=== PATIENT | male | born 1980 | race Caucasian/White ===

== ENCOUNTER 2020-06-02 16:05 | Inpatient (IN) | payer OTHER ==
[2020-06-02 18:22] VITALS: BMI 29.0
[2020-06-02] MEDS ORDERED: LOPERAMIDE HCL 2 MG CAPSULE PO PRN (19:22)
[2020-06-02] MEDS ORDERED: MAGNESIUM CITRATE 300 ML BOTTLE PO PRN (19:22)
[2020-06-02] MEDS ORDERED: MAGNESIUM HYDROX 2400MG/30ML ORAL SUSPENSION 30 ML CUP PO PRN (19:22)
[2020-06-02] MEDS ORDERED: P-EPHED 60MG/TRIPROLIDI 2.5MG TABLET PO PRN (19:22)
[2020-06-02] MEDS ORDERED: ACETAMINOPHEN 325 MG TABLET (FP) PO PRN (19:22)
[2020-06-02] MEDS ORDERED: IBUPROFEN 400 MG TABLET (FP) PO PRN (19:22)
[2020-06-02] MEDS ORDERED: MENTHOL/PHENOL 1 EACH UD MM PRN (19:22)
[2020-06-02] MEDS ORDERED: guaiFENesin 200 MG/10 ML 10 ML UNIT-DOSE CUPS PO PRN (19:22)
[2020-06-02] MEDS: hydrOXYzine PAMOATE 25 MG CAPSULE (FP) PO PRN (22:09)
[2020-06-02] MEDS: MELATONIN 5 MG TABLETS PO SCH (22:09)
[2020-06-02] MEDS: THIAMINE HCL 100 MG TABLET (FP) PO SCH (22:09)
[2020-06-02] MEDS ORDERED: TUBERCULIN PPD 5 TU/0.1ML VIAL ID ONE (22:12)
[2020-06-02] MEDS: MAG HYDROX/AL HYDROX/SIMETH 30 ML UNIT-DOSE CUP PO PRN (22:12)
[2020-06-03] MEDS: NICOTINE POLACRILEX 2 MG GUM BUC PRN ×2 (06:18→15:37)
[2020-06-03] MEDS: NICOTINE 21 MG/24 HOURS TOPICAL PATCH TD SCH (09:32)
[2020-06-03] MEDS: PRENATAL VITAMINS W/ FOLIC ACID TABLET (FP) PO SCH (09:32)
[2020-06-03] MEDS: hydrOXYzine PAMOATE 25 MG CAPSULE (FP) PO PRN (09:32)
[2020-06-03 10:29] LABS: HEMOGLOBIN 14.2 GM/dL (11.7-16.9); MCH 31.8 pg (25.7-33.7); MEAN CELL VOLUME 96.6 fl (80-96); MEAN PLT VOLUME 7.7 fl (7.5-11.1); PLATELET COUNT 250 K/MM3 (134-434); RBC 4.46 M/mm3 (4.00-5.60); RDW 13.6 % (11.9-15.9); WHITE BLOOD COUNT 6.1 K/mm3 (4.0-10.0)
[2020-06-03] MEDS: FLUoxetine HCL 20 MG CAPSULE PO SCH (10:30)
[2020-06-03] MEDS: PANTOPRAZOLE 40 MG TABLET PO SCH (10:30)
[2020-06-03 10:31] LABS: POTASSIUM 4.3 mmol/L (3.5-5.1)
[2020-06-03 10:35] LABS: ALBUMIN 3.8 g/dl (3.4-5.0); BLOOD UREA NITROGEN 11.7 mg/dL (7-18); CALCIUM 9.2 mg/dL (8.5-10.1)
[2020-06-03 10:38] LABS: CREATININE 0.8 mg/dL (0.55-1.3)
[2020-06-03 10:39] LABS: BILIRUBIN,TOTAL 0.8 mg/dL (0.2-1); TOT PROT 7.5 g/dl (6.4-8.2)
[2020-06-03] MEDS: GABAPENTIN 100 MG CAPSULE PO SCH ×2 (15:00→21:33)
[2020-06-03] MEDS: MELATONIN 5 MG TABLETS PO SCH (21:33)
[2020-06-03] MEDS: THIAMINE HCL 100 MG TABLET (FP) PO SCH (21:33)
[2020-06-04] MEDS: hydrOXYzine PAMOATE 25 MG CAPSULE (FP) PO PRN ×4 (06:28→21:11)
[2020-06-04] MEDS: GABAPENTIN 100 MG CAPSULE PO SCH ×3 (06:28→21:10)
[2020-06-04] MEDS: NICOTINE 21 MG/24 HOURS TOPICAL PATCH TD SCH (09:27)
[2020-06-04] MEDS: PRENATAL VITAMINS W/ FOLIC ACID TABLET (FP) PO SCH (09:28)
[2020-06-04] MEDS: FLUoxetine HCL 20 MG CAPSULE PO SCH (09:28)
[2020-06-04] MEDS: PANTOPRAZOLE 40 MG TABLET PO SCH (09:28)
[2020-06-04] MEDS: NICOTINE POLACRILEX 2 MG GUM BUC PRN ×2 (11:46→17:00)
[2020-06-04] MEDS: MAG HYDROX/AL HYDROX/SIMETH 30 ML UNIT-DOSE CUP PO PRN (11:46)
[2020-06-04] MEDS: THIAMINE HCL 100 MG TABLET (FP) PO SCH (21:10)
[2020-06-04] MEDS: MELATONIN 5 MG TABLETS PO SCH (21:11)
[2020-06-05] MEDS: hydrOXYzine PAMOATE 25 MG CAPSULE (FP) PO PRN ×4 (06:13→21:19)
[2020-06-05] MEDS: GABAPENTIN 100 MG CAPSULE PO SCH ×3 (06:13→21:19)
[2020-06-05] MEDS: NICOTINE POLACRILEX 2 MG GUM BUC PRN ×2 (06:14→09:40)
[2020-06-05] MEDS: PRENATAL VITAMINS W/ FOLIC ACID TABLET (FP) PO SCH (09:37)
[2020-06-05] MEDS: FLUoxetine HCL 20 MG CAPSULE PO SCH (09:37)
[2020-06-05] MEDS: NICOTINE 21 MG/24 HOURS TOPICAL PATCH TD SCH (09:37)
[2020-06-05] MEDS: PANTOPRAZOLE 40 MG TABLET PO SCH (09:37)
[2020-06-05] MEDS: METHOCARBAMOL 500 MG TABLET PO PRN ×3 (10:42→21:19)
[2020-06-05] MEDS ORDERED: INSULIN SLIDING SCALE (NOVOLOG) 1 VIAL SQ SCH (11:00)
[2020-06-05] MEDS: INSULIN SLIDING SCALE (NOVOLOG) 1 VIAL SQ SCH (17:01)
[2020-06-05] MEDS ORDERED: INSULIN (NOVOLOG) ASPART 100 UNITS/ML 10ML VIAL ONE (17:07)
[2020-06-05] MEDS: THIAMINE HCL 100 MG TABLET (FP) PO SCH (21:18)
[2020-06-05] MEDS: MELATONIN 5 MG TABLETS PO SCH (21:18)
[2020-06-06] MEDS ORDERED: INSULIN (NOVOLOG) ASPART 100 UNITS/ML 10ML VIAL ONE (06:25)
[2020-06-06] MEDS: GABAPENTIN 100 MG CAPSULE PO SCH ×3 (06:27→21:41)
[2020-06-06] MEDS: METHOCARBAMOL 500 MG TABLET PO PRN ×2 (06:27→11:53)
[2020-06-06] MEDS: hydrOXYzine PAMOATE 25 MG CAPSULE (FP) PO PRN ×4 (06:27→21:41)
[2020-06-06] MEDS: NICOTINE POLACRILEX 2 MG GUM BUC PRN ×5 (06:27→21:42)
[2020-06-06] MEDS: INSULIN SLIDING SCALE (NOVOLOG) 1 VIAL SQ SCH ×2 (06:27→17:01)
[2020-06-06] MEDS ORDERED: IBUPROFEN 600 MG TABLET (FP) PO PRN ×2 (09:46→10:01)
[2020-06-06] MEDS: NICOTINE 21 MG/24 HOURS TOPICAL PATCH TD SCH (09:54)
[2020-06-06] MEDS: PRENATAL VITAMINS W/ FOLIC ACID TABLET (FP) PO SCH (09:54)
[2020-06-06] MEDS: FLUoxetine HCL 20 MG CAPSULE PO SCH (09:56)
[2020-06-06] MEDS: PANTOPRAZOLE 40 MG TABLET PO SCH (09:56)
[2020-06-06] MEDS: METHOCARBAMOL 750 MG TAB PO PRN (17:54)
[2020-06-06] MEDS: MELATONIN 5 MG TABLETS PO SCH (21:41)
[2020-06-06] MEDS: THIAMINE HCL 100 MG TABLET (FP) PO SCH (21:41)
[2020-06-07] MEDS ORDERED: INSULIN (NOVOLOG) ASPART 100 UNITS/ML 10ML VIAL ONE (05:52)
[2020-06-07] MEDS: METHOCARBAMOL 750 MG TAB PO PRN ×3 (06:08→21:33)
[2020-06-07] MEDS: GABAPENTIN 100 MG CAPSULE PO SCH ×2 (06:08→13:51)
[2020-06-07] MEDS: hydrOXYzine PAMOATE 25 MG CAPSULE (FP) PO PRN ×4 (06:08→21:33)
[2020-06-07] MEDS: INSULIN SLIDING SCALE (NOVOLOG) 1 VIAL SQ SCH ×2 (06:12→16:55)
[2020-06-07] MEDS: PRENATAL VITAMINS W/ FOLIC ACID TABLET (FP) PO SCH (09:51)
[2020-06-07] MEDS: NICOTINE 21 MG/24 HOURS TOPICAL PATCH TD SCH (09:51)
[2020-06-07] MEDS: PANTOPRAZOLE 40 MG TABLET PO SCH (09:52)
[2020-06-07] MEDS: FLUoxetine HCL 20 MG CAPSULE PO SCH (09:52)
[2020-06-07] MEDS: NICOTINE POLACRILEX 2 MG GUM BUC PRN ×3 (09:53→21:33)
[2020-06-07] MEDS ORDERED: FLU VACCINE (FLULAVAL) PF 60 MCG/0.5 ML SYRINGE 2020-2021 IM ONE (12:00)
[2020-06-07] MEDS: MELATONIN 5 MG TABLETS PO SCH (21:32)
[2020-06-07] MEDS: THIAMINE HCL 100 MG TABLET (FP) PO SCH (21:33)
[2020-06-07] MEDS: GABAPENTIN 400 MG CAPSULE PO SCH (21:33)
[2020-06-08] MEDS: GABAPENTIN 400 MG CAPSULE PO SCH ×3 (06:37→21:56)
[2020-06-08] MEDS: METHOCARBAMOL 750 MG TAB PO PRN ×3 (06:37→21:56)
[2020-06-08] MEDS: hydrOXYzine PAMOATE 25 MG CAPSULE (FP) PO PRN ×3 (06:37→21:56)
[2020-06-08] MEDS: INSULIN SLIDING SCALE (NOVOLOG) 1 VIAL SQ SCH ×2 (06:40→16:58)
[2020-06-08] MEDS: NICOTINE 21 MG/24 HOURS TOPICAL PATCH TD SCH (10:10)
[2020-06-08] MEDS: PANTOPRAZOLE 40 MG TABLET PO SCH (10:11)
[2020-06-08] MEDS: PRENATAL VITAMINS W/ FOLIC ACID TABLET (FP) PO SCH (10:11)
[2020-06-08] MEDS: FLUoxetine HCL 10 MG CAPSULE PO SCH (10:12)
[2020-06-08] MEDS: NICOTINE POLACRILEX 2 MG GUM BUC PRN ×2 (10:12→13:28)
[2020-06-08] MEDS ORDERED: INSULIN (NOVOLOG) ASPART 100 UNITS/ML 10ML VIAL ONE (16:31)
[2020-06-08] MEDS: THIAMINE HCL 100 MG TABLET (FP) PO SCH (21:56)
[2020-06-08] MEDS: MELATONIN 5 MG TABLETS PO SCH (21:56)
[2020-06-09] MEDS: METHOCARBAMOL 750 MG TAB PO PRN ×3 (06:30→21:17)
[2020-06-09] MEDS: GABAPENTIN 400 MG CAPSULE PO SCH ×3 (06:30→21:17)
[2020-06-09] MEDS: NICOTINE POLACRILEX 4 MG GUM BUC PRN ×3 (06:30→14:34)
[2020-06-09] MEDS: hydrOXYzine PAMOATE 25 MG CAPSULE (FP) PO PRN ×2 (06:30→14:34)
[2020-06-09] MEDS: INSULIN SLIDING SCALE (NOVOLOG) 1 VIAL SQ SCH ×2 (07:18→16:47)
[2020-06-09] MEDS: FLUoxetine HCL 10 MG CAPSULE PO SCH (09:48)
[2020-06-09] MEDS: NICOTINE 21 MG/24 HOURS TOPICAL PATCH TD SCH (09:49)
[2020-06-09] MEDS: PANTOPRAZOLE 40 MG TABLET PO SCH (09:49)
[2020-06-09] MEDS: PRENATAL VITAMINS W/ FOLIC ACID TABLET (FP) PO SCH (09:49)
[2020-06-09] MEDS: THIAMINE HCL 100 MG TABLET (FP) PO SCH (21:17)
[2020-06-09] MEDS: MELATONIN 5 MG TABLETS PO SCH (21:19)
[2020-06-10] MEDS: GABAPENTIN 400 MG CAPSULE PO SCH (06:36)
[2020-06-10] MEDS: INSULIN SLIDING SCALE (NOVOLOG) 1 VIAL SQ SCH ×2 (06:36→16:58)
[2020-06-10] MEDS: METHOCARBAMOL 750 MG TAB PO PRN ×3 (06:37→21:45)
[2020-06-10] MEDS: NICOTINE POLACRILEX 4 MG GUM BUC PRN ×4 (06:37→21:47)
[2020-06-10] MEDS: NICOTINE 21 MG/24 HOURS TOPICAL PATCH TD SCH (09:32)
[2020-06-10] MEDS: PRENATAL VITAMINS W/ FOLIC ACID TABLET (FP) PO SCH (09:32)
[2020-06-10] MEDS: PANTOPRAZOLE 40 MG TABLET PO SCH (09:32)
[2020-06-10] MEDS: FLUoxetine HCL 10 MG CAPSULE PO SCH (09:32)
[2020-06-10] MEDS: hydrOXYzine PAMOATE 25 MG CAPSULE (FP) PO PRN ×2 (14:13→21:44)
[2020-06-10] MEDS: GABAPENTIN 300 MG CAPSULE PO SCH ×2 (14:15→21:44)
[2020-06-10] MEDS ORDERED: INSULIN (NOVOLOG) ASPART 100 UNITS/ML 10ML VIAL ONE (17:11)
[2020-06-10] MEDS: THIAMINE HCL 100 MG TABLET (FP) PO SCH (21:44)
[2020-06-10] MEDS: MELATONIN 5 MG TABLETS PO SCH (21:44)
[2020-06-11] MEDS: GABAPENTIN 300 MG CAPSULE PO SCH ×3 (06:23→21:16)
[2020-06-11] MEDS ORDERED: INSULIN (NOVOLOG) ASPART 100 UNITS/ML 10ML VIAL ONE (06:23)
[2020-06-11] MEDS: hydrOXYzine PAMOATE 25 MG CAPSULE (FP) PO PRN ×4 (06:23→21:16)
[2020-06-11] MEDS: NICOTINE POLACRILEX 4 MG GUM BUC PRN ×5 (06:25→21:18)
[2020-06-11] MEDS: METHOCARBAMOL 750 MG TAB PO PRN ×2 (06:25→21:16)
[2020-06-11] MEDS: INSULIN SLIDING SCALE (NOVOLOG) 1 VIAL SQ SCH ×2 (06:25→16:53)
[2020-06-11] MEDS: NICOTINE 21 MG/24 HOURS TOPICAL PATCH TD SCH (10:06)
[2020-06-11] MEDS: PRENATAL VITAMINS W/ FOLIC ACID TABLET (FP) PO SCH (10:06)
[2020-06-11] MEDS: FLUoxetine HCL 20 MG CAPSULE PO SCH (10:07)
[2020-06-11] MEDS: PANTOPRAZOLE 40 MG TABLET PO SCH (10:09)
[2020-06-11] MEDS: MELATONIN 5 MG TABLETS PO SCH (21:16)
[2020-06-11] MEDS: THIAMINE HCL 100 MG TABLET (FP) PO SCH (21:16)
[2020-06-12] MEDS: METHOCARBAMOL 750 MG TAB PO PRN ×3 (06:28→21:26)
[2020-06-12] MEDS: hydrOXYzine PAMOATE 25 MG CAPSULE (FP) PO PRN ×5 (06:28→21:26)
[2020-06-12] MEDS: GABAPENTIN 300 MG CAPSULE PO SCH ×3 (06:28→21:26)
[2020-06-12] MEDS: NICOTINE POLACRILEX 4 MG GUM BUC PRN ×4 (06:29→16:54)
[2020-06-12] MEDS: INSULIN SLIDING SCALE (NOVOLOG) 1 VIAL SQ SCH ×2 (07:28→16:52)
[2020-06-12] MEDS: FLUoxetine HCL 20 MG CAPSULE PO SCH (09:56)
[2020-06-12] MEDS: PRENATAL VITAMINS W/ FOLIC ACID TABLET (FP) PO SCH (09:56)
[2020-06-12] MEDS: PANTOPRAZOLE 40 MG TABLET PO SCH (09:57)
[2020-06-12] MEDS: NICOTINE 21 MG/24 HOURS TOPICAL PATCH TD SCH (09:57)
[2020-06-12] MEDS: MELATONIN 5 MG TABLETS PO SCH (21:26)
[2020-06-12] MEDS: THIAMINE HCL 100 MG TABLET (FP) PO SCH (21:26)
[2020-06-13] MEDS: GABAPENTIN 300 MG CAPSULE PO SCH ×3 (06:20→21:14)
[2020-06-13] MEDS: hydrOXYzine PAMOATE 25 MG CAPSULE (FP) PO PRN ×3 (06:20→21:14)
[2020-06-13] MEDS: METHOCARBAMOL 750 MG TAB PO PRN ×3 (06:20→21:14)
[2020-06-13] MEDS ORDERED: INSULIN (NOVOLOG) ASPART 100 UNITS/ML 10ML VIAL ONE ×2 (06:50→16:35)
[2020-06-13] MEDS: INSULIN SLIDING SCALE (NOVOLOG) 1 VIAL SQ SCH ×2 (06:51→16:46)
[2020-06-13] MEDS: NICOTINE 21 MG/24 HOURS TOPICAL PATCH TD SCH (09:44)
[2020-06-13] MEDS: PANTOPRAZOLE 40 MG TABLET PO SCH (09:44)
[2020-06-13] MEDS: PRENATAL VITAMINS W/ FOLIC ACID TABLET (FP) PO SCH (09:44)
[2020-06-13] MEDS: FLUoxetine HCL 20 MG CAPSULE PO SCH (09:44)
[2020-06-13] MEDS: NICOTINE POLACRILEX 4 MG GUM BUC PRN ×4 (09:45→21:15)
[2020-06-13] MEDS: THIAMINE HCL 100 MG TABLET (FP) PO SCH (21:14)
[2020-06-13] MEDS: MELATONIN 5 MG TABLETS PO SCH (21:14)
[2020-06-14] MEDS: GABAPENTIN 300 MG CAPSULE PO SCH ×3 (06:10→21:23)
[2020-06-14] MEDS: METHOCARBAMOL 750 MG TAB PO PRN ×3 (06:10→21:23)
[2020-06-14] MEDS: hydrOXYzine PAMOATE 25 MG CAPSULE (FP) PO PRN ×3 (06:10→21:23)
[2020-06-14] MEDS: NICOTINE POLACRILEX 4 MG GUM BUC PRN ×4 (06:11→21:25)
[2020-06-14] MEDS: INSULIN SLIDING SCALE (NOVOLOG) 1 VIAL SQ SCH ×2 (06:33→16:40)
[2020-06-14] MEDS: FLUoxetine HCL 20 MG CAPSULE PO SCH (09:46)
[2020-06-14] MEDS: NICOTINE 21 MG/24 HOURS TOPICAL PATCH TD SCH (09:46)
[2020-06-14] MEDS: PANTOPRAZOLE 40 MG TABLET PO SCH (09:46)
[2020-06-14] MEDS: PRENATAL VITAMINS W/ FOLIC ACID TABLET (FP) PO SCH (09:46)
[2020-06-14] MEDS: IBUPROFEN 600 MG TABLET (FP) PO PRN ×2 (13:22→21:23)
[2020-06-14] MEDS: THIAMINE HCL 100 MG TABLET (FP) PO SCH (21:23)
[2020-06-14] MEDS: MELATONIN 5 MG TABLETS PO SCH (21:24)
[2020-06-15 00:06] LABS: HEP B CORE AB, TOT Negative (Negative)
[2020-06-15] MEDS: GABAPENTIN 300 MG CAPSULE PO SCH ×3 (06:16→21:16)
[2020-06-15] MEDS: hydrOXYzine PAMOATE 25 MG CAPSULE (FP) PO PRN ×3 (06:17→21:17)
[2020-06-15] MEDS: METHOCARBAMOL 750 MG TAB PO PRN ×2 (06:17→13:11)
[2020-06-15] MEDS: INSULIN SLIDING SCALE (NOVOLOG) 1 VIAL SQ SCH ×2 (06:18→17:14)
[2020-06-15] MEDS: NICOTINE POLACRILEX 4 MG GUM BUC PRN ×3 (06:19→13:12)
[2020-06-15] MEDS ORDERED: INSULIN (NOVOLOG) ASPART 100 UNITS/ML 10ML VIAL ONE ×2 (06:34→17:09)
[2020-06-15] MEDS: PRENATAL VITAMINS W/ FOLIC ACID TABLET (FP) PO SCH (09:34)
[2020-06-15] MEDS: PANTOPRAZOLE 40 MG TABLET PO SCH (09:34)
[2020-06-15] MEDS: FLUoxetine HCL 20 MG CAPSULE PO SCH (09:34)
[2020-06-15] MEDS: NICOTINE 21 MG/24 HOURS TOPICAL PATCH TD SCH (09:35)
[2020-06-15] MEDS: IBUPROFEN 600 MG TABLET (FP) PO PRN (13:12)
[2020-06-15] MEDS: THIAMINE HCL 100 MG TABLET (FP) PO SCH (21:16)
[2020-06-15] MEDS: MELATONIN 5 MG TABLETS PO SCH (21:57)
[2020-06-16] MEDS: hydrOXYzine PAMOATE 25 MG CAPSULE (FP) PO PRN ×3 (06:24→21:26)
[2020-06-16] MEDS: METHOCARBAMOL 750 MG TAB PO PRN ×3 (06:24→21:26)
[2020-06-16] MEDS: GABAPENTIN 300 MG CAPSULE PO SCH ×3 (06:24→21:26)
[2020-06-16] MEDS: NICOTINE POLACRILEX 4 MG GUM BUC PRN ×4 (06:24→21:27)
[2020-06-16] MEDS ORDERED: INSULIN (NOVOLOG) ASPART 100 UNITS/ML 10ML VIAL ONE (06:56)
[2020-06-16] MEDS: INSULIN SLIDING SCALE (NOVOLOG) 1 VIAL SQ SCH ×2 (07:15→16:59)
[2020-06-16] MEDS: NICOTINE 21 MG/24 HOURS TOPICAL PATCH TD SCH (09:49)
[2020-06-16] MEDS: PRENATAL VITAMINS W/ FOLIC ACID TABLET (FP) PO SCH (09:49)
[2020-06-16] MEDS: FLUoxetine HCL 20 MG CAPSULE PO SCH (09:49)
[2020-06-16] MEDS: PANTOPRAZOLE 40 MG TABLET PO SCH (09:50)
[2020-06-16] MEDS: MELATONIN 5 MG TABLETS PO SCH (21:26)
[2020-06-16] MEDS: THIAMINE HCL 100 MG TABLET (FP) PO SCH (21:26)
[2020-06-17] MEDS: GABAPENTIN 300 MG CAPSULE PO SCH ×3 (06:14→21:18)
[2020-06-17] MEDS: METHOCARBAMOL 750 MG TAB PO PRN ×3 (06:14→21:18)
[2020-06-17] MEDS: hydrOXYzine PAMOATE 25 MG CAPSULE (FP) PO PRN ×3 (06:14→21:18)
[2020-06-17] MEDS: INSULIN SLIDING SCALE (NOVOLOG) 1 VIAL SQ SCH ×2 (06:36→17:05)
[2020-06-17] MEDS: PANTOPRAZOLE 40 MG TABLET PO SCH (09:34)
[2020-06-17] MEDS: NICOTINE 21 MG/24 HOURS TOPICAL PATCH TD SCH (09:34)
[2020-06-17] MEDS: PRENATAL VITAMINS W/ FOLIC ACID TABLET (FP) PO SCH (09:34)
[2020-06-17] MEDS: FLUoxetine HCL 20 MG CAPSULE PO SCH (09:34)
[2020-06-17] MEDS: NICOTINE POLACRILEX 4 MG GUM BUC PRN ×4 (09:37→21:19)
[2020-06-17] MEDS: MELATONIN 5 MG TABLETS PO SCH (21:18)
[2020-06-17] MEDS: THIAMINE HCL 100 MG TABLET (FP) PO SCH (21:18)
[2020-06-18] MEDS: GABAPENTIN 300 MG CAPSULE PO SCH ×3 (06:08→21:12)
[2020-06-18] MEDS: METHOCARBAMOL 750 MG TAB PO PRN ×3 (06:08→21:12)
[2020-06-18] MEDS: hydrOXYzine PAMOATE 25 MG CAPSULE (FP) PO PRN ×3 (06:08→21:12)
[2020-06-18] MEDS: NICOTINE POLACRILEX 4 MG GUM BUC PRN ×2 (06:09→09:36)
[2020-06-18] MEDS ORDERED: INSULIN (NOVOLOG) ASPART 100 UNITS/ML 10ML VIAL ONE (06:30)
[2020-06-18] MEDS: INSULIN SLIDING SCALE (NOVOLOG) 1 VIAL SQ SCH ×2 (06:30→16:50)
[2020-06-18] MEDS: PANTOPRAZOLE 40 MG TABLET PO SCH (09:34)
[2020-06-18] MEDS: FLUoxetine HCL 20 MG CAPSULE PO SCH (09:34)
[2020-06-18] MEDS: NICOTINE 21 MG/24 HOURS TOPICAL PATCH TD SCH (09:34)
[2020-06-18] MEDS: PRENATAL VITAMINS W/ FOLIC ACID TABLET (FP) PO SCH (09:34)
[2020-06-18] MEDS: MELATONIN 5 MG TABLETS PO SCH (21:12)
[2020-06-18] MEDS: THIAMINE HCL 100 MG TABLET (FP) PO SCH (21:12)
[2020-06-19] MEDS: GABAPENTIN 300 MG CAPSULE PO SCH ×3 (06:15→21:29)
[2020-06-19] MEDS: hydrOXYzine PAMOATE 25 MG CAPSULE (FP) PO PRN ×3 (06:15→21:29)
[2020-06-19] MEDS: NICOTINE POLACRILEX 4 MG GUM BUC PRN ×4 (06:16→21:29)
[2020-06-19] MEDS: METHOCARBAMOL 750 MG TAB PO PRN ×3 (06:16→21:29)
[2020-06-19] MEDS ORDERED: INSULIN (NOVOLOG) ASPART 100 UNITS/ML 10ML VIAL ONE (07:01)
[2020-06-19] MEDS: INSULIN SLIDING SCALE (NOVOLOG) 1 VIAL SQ SCH ×2 (07:54→16:41)
[2020-06-19] MEDS: PRENATAL VITAMINS W/ FOLIC ACID TABLET (FP) PO SCH (09:13)
[2020-06-19] MEDS: NICOTINE 21 MG/24 HOURS TOPICAL PATCH TD SCH (09:13)
[2020-06-19] MEDS: PANTOPRAZOLE 40 MG TABLET PO SCH (09:14)
[2020-06-19] MEDS: FLUoxetine HCL 20 MG CAPSULE PO SCH (09:14)
[2020-06-19] MEDS: MELATONIN 5 MG TABLETS PO SCH (21:29)
[2020-06-19] MEDS: THIAMINE HCL 100 MG TABLET (FP) PO SCH (21:29)
[2020-06-20] MEDS: INSULIN SLIDING SCALE (NOVOLOG) 1 VIAL SQ SCH ×2 (06:19→16:42)
[2020-06-20] MEDS: GABAPENTIN 300 MG CAPSULE PO SCH ×3 (06:21→21:11)
[2020-06-20] MEDS: hydrOXYzine PAMOATE 25 MG CAPSULE (FP) PO PRN ×3 (06:21→21:11)
[2020-06-20] MEDS: METHOCARBAMOL 750 MG TAB PO PRN ×3 (06:21→21:11)
[2020-06-20] MEDS: FLUoxetine HCL 20 MG CAPSULE PO SCH (09:46)
[2020-06-20] MEDS: PANTOPRAZOLE 40 MG TABLET PO SCH (09:46)
[2020-06-20] MEDS: PRENATAL VITAMINS W/ FOLIC ACID TABLET (FP) PO SCH (09:46)
[2020-06-20] MEDS: NICOTINE POLACRILEX 4 MG GUM BUC PRN ×2 (09:47→13:15)
[2020-06-20] MEDS: NICOTINE 21 MG/24 HOURS TOPICAL PATCH TD SCH (09:47)
[2020-06-20] MEDS ORDERED: NICOTINE POLACRILEX 4 MG GUM BUC ONE (13:14)
[2020-06-20] MEDS ORDERED: INSULIN (NOVOLOG) ASPART 100 UNITS/ML 10ML VIAL ONE ×2 (16:36→22:48)
[2020-06-20] MEDS: MELATONIN 5 MG TABLETS PO SCH (21:11)
[2020-06-20] MEDS: THIAMINE HCL 100 MG TABLET (FP) PO SCH (21:11)
[2020-06-20] MEDS ORDERED: INSULIN (LEVEMIR) 100 UNITS/ML UNITS SQ ONE (22:48)
[2020-06-21] MEDS: METHOCARBAMOL 750 MG TAB PO PRN ×3 (06:19→21:18)
[2020-06-21] MEDS: hydrOXYzine PAMOATE 25 MG CAPSULE (FP) PO PRN ×3 (06:19→21:18)
[2020-06-21] MEDS: GABAPENTIN 300 MG CAPSULE PO SCH ×3 (06:20→21:18)
[2020-06-21] MEDS: NICOTINE POLACRILEX 4 MG GUM BUC PRN ×4 (06:20→21:19)
[2020-06-21] MEDS ORDERED: INSULIN (NOVOLOG) ASPART 100 UNITS/ML 10ML VIAL ONE (07:06)
[2020-06-21] MEDS: INSULIN SLIDING SCALE (NOVOLOG) 1 VIAL SQ SCH ×2 (07:11→16:53)
[2020-06-21] MEDS: FLUoxetine HCL 20 MG CAPSULE PO SCH (09:39)
[2020-06-21] MEDS: PRENATAL VITAMINS W/ FOLIC ACID TABLET (FP) PO SCH (09:39)
[2020-06-21] MEDS: NICOTINE 21 MG/24 HOURS TOPICAL PATCH TD SCH (09:39)
[2020-06-21] MEDS: PANTOPRAZOLE 40 MG TABLET PO SCH (09:39)
[2020-06-21] MEDS: THIAMINE HCL 100 MG TABLET (FP) PO SCH (21:18)
[2020-06-21] MEDS: MELATONIN 5 MG TABLETS PO SCH (21:18)
[2020-06-22] MEDS: hydrOXYzine PAMOATE 25 MG CAPSULE (FP) PO PRN ×4 (06:07→21:20)
[2020-06-22] MEDS: METHOCARBAMOL 750 MG TAB PO PRN ×3 (06:07→21:20)
[2020-06-22] MEDS: GABAPENTIN 300 MG CAPSULE PO SCH ×3 (06:07→21:20)
[2020-06-22] MEDS: NICOTINE POLACRILEX 4 MG GUM BUC PRN ×4 (06:08→21:22)
[2020-06-22] MEDS ORDERED: INSULIN (NOVOLOG) ASPART 100 UNITS/ML 10ML VIAL ONE (06:35)
[2020-06-22] MEDS: INSULIN SLIDING SCALE (NOVOLOG) 1 VIAL SQ SCH ×2 (06:52→16:38)
[2020-06-22] MEDS: FLUoxetine HCL 20 MG CAPSULE PO SCH (09:22)
[2020-06-22] MEDS: PANTOPRAZOLE 40 MG TABLET PO SCH (09:22)
[2020-06-22] MEDS: NICOTINE 21 MG/24 HOURS TOPICAL PATCH TD SCH (09:22)
[2020-06-22] MEDS: PRENATAL VITAMINS W/ FOLIC ACID TABLET (FP) PO SCH (09:22)
[2020-06-22] MEDS: MELATONIN 5 MG TABLETS PO SCH (21:21)
[2020-06-22] MEDS: THIAMINE HCL 100 MG TABLET (FP) PO SCH (21:21)
[2020-06-23] MEDS: hydrOXYzine PAMOATE 25 MG CAPSULE (FP) PO PRN ×3 (06:26→21:32)
[2020-06-23] MEDS: NICOTINE POLACRILEX 4 MG GUM BUC PRN ×5 (06:26→21:32)
[2020-06-23] MEDS: GABAPENTIN 300 MG CAPSULE PO SCH ×3 (06:26→21:32)
[2020-06-23] MEDS: METHOCARBAMOL 750 MG TAB PO PRN ×3 (06:26→21:32)
[2020-06-23] MEDS ORDERED: INSULIN (NOVOLOG) ASPART 100 UNITS/ML 10ML VIAL ONE (06:28)
[2020-06-23] MEDS: INSULIN SLIDING SCALE (NOVOLOG) 1 VIAL SQ SCH ×2 (06:29→16:48)
[2020-06-23] MEDS: FLUoxetine HCL 20 MG CAPSULE PO SCH (09:37)
[2020-06-23] MEDS: NICOTINE 21 MG/24 HOURS TOPICAL PATCH TD SCH (09:38)
[2020-06-23] MEDS: PRENATAL VITAMINS W/ FOLIC ACID TABLET (FP) PO SCH (09:38)
[2020-06-23] MEDS: PANTOPRAZOLE 40 MG TABLET PO SCH (09:39)
[2020-06-23] MEDS: THIAMINE HCL 100 MG TABLET (FP) PO SCH (21:32)
[2020-06-23] MEDS: MELATONIN 5 MG TABLETS PO SCH (21:32)
[2020-06-24] MEDS: hydrOXYzine PAMOATE 25 MG CAPSULE (FP) PO PRN ×3 (06:29→21:21)
[2020-06-24] MEDS: METHOCARBAMOL 750 MG TAB PO PRN ×3 (06:29→21:21)
[2020-06-24] MEDS: GABAPENTIN 300 MG CAPSULE PO SCH ×3 (06:29→21:21)
[2020-06-24] MEDS ORDERED: INSULIN (NOVOLOG) ASPART 100 UNITS/ML 10ML VIAL ONE ×2 (07:09→16:28)
[2020-06-24] MEDS: INSULIN SLIDING SCALE (NOVOLOG) 1 VIAL SQ SCH ×2 (07:10→16:35)
[2020-06-24] MEDS: PRENATAL VITAMINS W/ FOLIC ACID TABLET (FP) PO SCH (09:26)
[2020-06-24] MEDS: NICOTINE 21 MG/24 HOURS TOPICAL PATCH TD SCH (09:27)
[2020-06-24] MEDS: PANTOPRAZOLE 40 MG TABLET PO SCH (09:27)
[2020-06-24] MEDS: FLUoxetine HCL 20 MG CAPSULE PO SCH (09:27)
[2020-06-24] MEDS: NICOTINE POLACRILEX 4 MG GUM BUC PRN ×2 (09:28→13:29)
[2020-06-24] MEDS: MELATONIN 5 MG TABLETS PO SCH (21:21)
[2020-06-24] MEDS: THIAMINE HCL 100 MG TABLET (FP) PO SCH (21:21)
[2020-06-25] MEDS: GABAPENTIN 300 MG CAPSULE PO SCH ×3 (06:37→21:26)
[2020-06-25] MEDS: METHOCARBAMOL 750 MG TAB PO PRN ×3 (06:37→21:26)
[2020-06-25] MEDS: hydrOXYzine PAMOATE 25 MG CAPSULE (FP) PO PRN ×3 (06:38→21:26)
[2020-06-25] MEDS: NICOTINE POLACRILEX 4 MG GUM BUC PRN ×3 (06:38→14:18)
[2020-06-25] MEDS ORDERED: INSULIN (NOVOLOG) ASPART 100 UNITS/ML 10ML VIAL ONE (06:51)
[2020-06-25] MEDS: INSULIN SLIDING SCALE (NOVOLOG) 1 VIAL SQ SCH ×2 (06:54→16:55)
[2020-06-25] MEDS: NICOTINE 21 MG/24 HOURS TOPICAL PATCH TD SCH (09:31)
[2020-06-25] MEDS: PANTOPRAZOLE 40 MG TABLET PO SCH (09:31)
[2020-06-25] MEDS: FLUoxetine HCL 20 MG CAPSULE PO SCH (09:31)
[2020-06-25] MEDS: PRENATAL VITAMINS W/ FOLIC ACID TABLET (FP) PO SCH (09:32)
[2020-06-25] MEDS: THIAMINE HCL 100 MG TABLET (FP) PO SCH (21:27)
[2020-06-25] MEDS: MELATONIN 5 MG TABLETS PO SCH (21:27)
[2020-06-26] MEDS: GABAPENTIN 300 MG CAPSULE PO SCH ×3 (06:40→21:21)
[2020-06-26] MEDS: METHOCARBAMOL 750 MG TAB PO PRN ×3 (06:40→21:21)
[2020-06-26] MEDS: hydrOXYzine PAMOATE 25 MG CAPSULE (FP) PO PRN ×3 (06:40→21:21)
[2020-06-26] MEDS: INSULIN SLIDING SCALE (NOVOLOG) 1 VIAL SQ SCH ×2 (06:41→16:53)
[2020-06-26] MEDS: NICOTINE POLACRILEX 4 MG GUM BUC PRN ×4 (06:41→21:22)
[2020-06-26] MEDS ORDERED: INSULIN (NOVOLOG) ASPART 100 UNITS/ML 10ML VIAL ONE (06:43)
[2020-06-26] MEDS: PANTOPRAZOLE 40 MG TABLET PO SCH (09:35)
[2020-06-26] MEDS: PRENATAL VITAMINS W/ FOLIC ACID TABLET (FP) PO SCH (09:35)
[2020-06-26] MEDS: FLUoxetine HCL 20 MG CAPSULE PO SCH (09:35)
[2020-06-26] MEDS: NICOTINE 21 MG/24 HOURS TOPICAL PATCH TD SCH (09:35)
[2020-06-26] MEDS: THIAMINE HCL 100 MG TABLET (FP) PO SCH (21:21)
[2020-06-26] MEDS: MELATONIN 5 MG TABLETS PO SCH (21:21)
[2020-06-27] MEDS ORDERED: INSULIN (NOVOLOG) ASPART 100 UNITS/ML 10ML VIAL ONE (06:43)
[2020-06-27] MEDS: METHOCARBAMOL 750 MG TAB PO PRN ×3 (06:44→21:48)
[2020-06-27] MEDS: GABAPENTIN 300 MG CAPSULE PO SCH ×3 (06:44→21:48)
[2020-06-27] MEDS: hydrOXYzine PAMOATE 25 MG CAPSULE (FP) PO PRN ×3 (06:45→21:48)
[2020-06-27] MEDS: INSULIN SLIDING SCALE (NOVOLOG) 1 VIAL SQ SCH ×2 (06:45→16:41)
[2020-06-27] MEDS: NICOTINE POLACRILEX 4 MG GUM BUC PRN ×3 (06:45→21:49)
[2020-06-27] MEDS: PRENATAL VITAMINS W/ FOLIC ACID TABLET (FP) PO SCH (09:53)
[2020-06-27] MEDS: NICOTINE 21 MG/24 HOURS TOPICAL PATCH TD SCH (09:53)
[2020-06-27] MEDS: PANTOPRAZOLE 40 MG TABLET PO SCH (09:53)
[2020-06-27] MEDS: FLUoxetine HCL 20 MG CAPSULE PO SCH (09:53)
[2020-06-27] MEDS: THIAMINE HCL 100 MG TABLET (FP) PO SCH (21:48)
[2020-06-27] MEDS: MELATONIN 5 MG TABLETS PO SCH (21:48)
[2020-06-28] MEDS: METHOCARBAMOL 750 MG TAB PO PRN ×3 (06:17→21:25)
[2020-06-28] MEDS: NICOTINE POLACRILEX 4 MG GUM BUC PRN ×5 (06:17→21:26)
[2020-06-28] MEDS: hydrOXYzine PAMOATE 25 MG CAPSULE (FP) PO PRN ×2 (06:17→13:12)
[2020-06-28] MEDS: GABAPENTIN 300 MG CAPSULE PO SCH ×3 (06:17→21:24)
[2020-06-28] MEDS ORDERED: INSULIN (NOVOLOG) ASPART 100 UNITS/ML 10ML VIAL ONE (07:18)
[2020-06-28] MEDS: INSULIN SLIDING SCALE (NOVOLOG) 1 VIAL SQ SCH ×2 (07:43→16:46)
[2020-06-28] MEDS: PANTOPRAZOLE 40 MG TABLET PO SCH (09:30)
[2020-06-28] MEDS: PRENATAL VITAMINS W/ FOLIC ACID TABLET (FP) PO SCH (09:30)
[2020-06-28] MEDS: FLUoxetine HCL 20 MG CAPSULE PO SCH (09:30)
[2020-06-28] MEDS: NICOTINE 21 MG/24 HOURS TOPICAL PATCH TD SCH (09:31)
[2020-06-28] MEDS: MELATONIN 5 MG TABLETS PO SCH (21:26)
[2020-06-28] MEDS: THIAMINE HCL 100 MG TABLET (FP) PO SCH (21:31)
[2020-06-29] MEDS: GABAPENTIN 300 MG CAPSULE PO SCH ×3 (06:12→21:24)
[2020-06-29] MEDS: NICOTINE POLACRILEX 4 MG GUM BUC PRN ×3 (06:13→13:17)
[2020-06-29] MEDS: hydrOXYzine PAMOATE 25 MG CAPSULE (FP) PO PRN ×2 (06:13→13:15)
[2020-06-29] MEDS: METHOCARBAMOL 750 MG TAB PO PRN ×3 (06:13→21:26)
[2020-06-29] MEDS ORDERED: INSULIN (NOVOLOG) ASPART 100 UNITS/ML 10ML VIAL ONE (06:56)
[2020-06-29] MEDS: INSULIN SLIDING SCALE (NOVOLOG) 1 VIAL SQ SCH ×2 (06:56→16:43)
[2020-06-29] MEDS: NICOTINE 21 MG/24 HOURS TOPICAL PATCH TD SCH (09:38)
[2020-06-29] MEDS: FLUoxetine HCL 20 MG CAPSULE PO SCH (09:38)
[2020-06-29] MEDS: PRENATAL VITAMINS W/ FOLIC ACID TABLET (FP) PO SCH (09:38)
[2020-06-29] MEDS: PANTOPRAZOLE 40 MG TABLET PO SCH (09:39)
[2020-06-29] MEDS ORDERED: MASKS NR ONE (17:38)
[2020-06-29] MEDS: MELATONIN 5 MG TABLETS PO SCH (21:25)
[2020-06-29] MEDS: THIAMINE HCL 100 MG TABLET (FP) PO SCH (21:25)
[2020-06-30] MEDS: GABAPENTIN 300 MG CAPSULE PO SCH ×3 (06:24→21:34)
[2020-06-30] MEDS: NICOTINE POLACRILEX 4 MG GUM BUC PRN ×2 (06:26→09:34)
[2020-06-30] MEDS: METHOCARBAMOL 750 MG TAB PO PRN ×3 (06:26→21:34)
[2020-06-30 07:03] VITALS: PULSE 80
[2020-06-30] MEDS: INSULIN SLIDING SCALE (NOVOLOG) 1 VIAL SQ SCH ×2 (07:41→16:48)
[2020-06-30] MEDS ORDERED: INSULIN (NOVOLOG) ASPART 100 UNITS/ML 10ML VIAL ONE ×2 (07:43→16:05)
[2020-06-30] MEDS: FLUoxetine HCL 20 MG CAPSULE PO SCH (09:34)
[2020-06-30] MEDS: PRENATAL VITAMINS W/ FOLIC ACID TABLET (FP) PO SCH (09:34)
[2020-06-30] MEDS: NICOTINE 21 MG/24 HOURS TOPICAL PATCH TD SCH (09:34)
[2020-06-30] MEDS: PANTOPRAZOLE 40 MG TABLET PO SCH (09:34)
[2020-06-30] MEDS: hydrOXYzine PAMOATE 25 MG CAPSULE (FP) PO PRN ×2 (13:46→21:34)
[2020-06-30] MEDS: MELATONIN 5 MG TABLETS PO SCH (21:34)
[2020-06-30] MEDS: THIAMINE HCL 100 MG TABLET (FP) PO SCH (21:34)
[2020-07-01 06:50] VITALS: BP 111/75; TEMP 97.7
[2020-07-01] MEDS: hydrOXYzine PAMOATE 25 MG CAPSULE (FP) PO PRN (07:07)
[2020-07-01] MEDS: METHOCARBAMOL 750 MG TAB PO PRN (07:07)
[2020-07-01] MEDS: NICOTINE POLACRILEX 4 MG GUM BUC PRN (07:07)
[2020-07-01] MEDS: GABAPENTIN 300 MG CAPSULE PO SCH (07:07)
[2020-07-01] MEDS: INSULIN SLIDING SCALE (NOVOLOG) 1 VIAL SQ SCH (07:10)
[2020-07-01] MEDS ORDERED: INSULIN (NOVOLOG) ASPART 100 UNITS/ML 10ML VIAL ONE (07:10)
[2020-07-01] MEDS: NICOTINE 21 MG/24 HOURS TOPICAL PATCH TD SCH (09:03)
[2020-07-01] MEDS: PANTOPRAZOLE 40 MG TABLET PO SCH (09:03)
[2020-07-01] MEDS: FLUoxetine HCL 20 MG CAPSULE PO SCH (09:03)
[2020-07-01] MEDS: PRENATAL VITAMINS W/ FOLIC ACID TABLET (FP) PO SCH (09:03)
== END 2020-07-01 09:10 | disposition other institution (70) | DRG 772 ==
LOC: YASAS 16:05 → Y5N 20:35
PROVIDERS: ADMIT Allergy & Immunology; ATTEND Allergy & Immunology
PROC: HZ42ZZZ Group Counseling for Substance Abuse Treatment, Cognitive-Behavioral (ICD-10-PCS; principal; 2020-06-02)
DX: F10.20 Alcohol dependence, uncomplicated (principal); F17.210 Nicotine dependence, cigarettes, uncomplicated; F41.9 Anxiety disorder, unspecified; F32.9 Major depressive disorder, single episode, unspecified; F43.10 Post-traumatic stress disorder, unspecified; I10 Essential (primary) hypertension; K21.9 Gastro-esophageal reflux disease without esophagitis; G40.909 Epilepsy, unspecified, not intractable, without status epilepticus; K86.1 Other chronic pancreatitis; K86.81 Exocrine pancreatic insufficiency; M54.5 Low back pain; G89.29 Other chronic pain; R73.9 Hyperglycemia, unspecified
CPT/HCPCS: 36415; 80053; 82962; 83036; 85027; 86704; 86706; 86707; 86708; 86709; 86803; 87340; 93005; 93010; G0008; Q2036